=== PATIENT | female | born 1960 | race Two or more races ===

== ENCOUNTER 2017-12-31 21:54 | Emergency (ER) | payer SELFPAY ==
[~2017-12-31] VITALS: Ht 157.5 cm; Wt 73.0 kg
[~2017-12-31 21:54] MED LIST: LEVAQUIN500 MG ORAL
[2017-12-31] MEDS ORDERED: ASPIR 8181 MG ORAL (22:06)
[2017-12-31] MEDS ORDERED: IBUPROFEN600 MG ORAL (23:01)
[2017-12-31 23:17] VITALS: BP 157/87
[2017-12-31 23:18] VITALS: BP 157/87
--- NOTE | 2018-01-01 | Emergency Room Report ---
History of Present Illness General Chief Complaint: Upper Extremity Injury Source: Patient Present Illness HPI 57-year-old female no significant past medical history presenting with left shoulder pain since yesterday. Patient states that she fell onto an outstretched heart and since then she's had upper left shoulder pain worse with lifting her arm. No other complaints no head trauma no LOC Allergies: Coded Allergies: No Known Allergies (Unverified , 01/18/16) Patient History Past Medical History: see triage record Past Surgical History: none Pertinent Family History: none Reviewed Nursing Documentation: PMH: Agreed; PSxH: Agreed Nursing Documentation-PMH Past Medical History: No History, Except For Hx Cardiac Problems: Yes Hx Hypertension: Yes Review of Systems All Other Systems: negative except mentioned in HPI Physical Exam Vital Signs Date Time Temp Pulse Resp B/P (MAP) Pulse Ox O2 Delivery O2 Flow Rate FiO2 12/31/17 21:59 98.0 62 19 155/89 98 Room Air 98.1 Sp02 EP Interpretation: reviewed, normal General Appearance: alert, GCS 15, non-toxic, mild distress Head: normocephalic, atraumatic Eyes: bilateral eye normal inspection, bilateral eye PERRL, bilateral eye EOMI ENT: normal ENT inspection, normal pharynx, normal voice, moist mucus membranes Neck: normal inspection, full range of motion, supple Respiratory: normal inspection, lungs clear, normal breath sounds, no respiratory distress, no retraction, no wheezing, speaking full sentences, chest symmetrical Cardiovascular #1: normal inspection, regular rate, rhythm, no edema, normal capillary refill Cardiovascular #2: 2+ radial (R), 2+ radial (L) Gastrointestinal: normal inspection, non tender, soft, non-distended, no guarding Musculoskeletal: other - Left proximal humerus tenderness, limited range of motion cannot left shoulder above 90 secondary to pain, no gross bony deformities, elbow and wrist intact, no swelling Neurologic: normal inspection, alert, oriented x3, responsive, motor strength/ tone normal, sensory intact, normal gait, speech normal Psychiatric: normal inspection, judgement/insight normal, memory normal Skin: normal inspection, normal color, no rash, warm/dry, well hydrated, normal turgor Medical Decision Making Diagnostic Impression: Primary Impression: Greater tuberosity of humerus fracture ER Course 57-year-old female with left shoulder pain after fall yesterday DDX: Contusion vs. fracture Plan: Pain control with motrin XR ER course: Very slight greater tuberosity fracture noted, patient placed in sling Disposition: Patient is to be discharged home with a prescription of motrin. Patient instructed to keep splint on at all times, and to follow up with orthopedic surgery in 1 week. Patient educated to rest, ice, and elevate extremity and to avoid vigorous activity. Strict precautions discussed with patient on when to return to the emergency room including increased redness or swelling joints, increased pain/swelling of extremity, fever or chills, which could indicate severe illness. Please note that this Emergency Department Report was dictated using [employer] marketing analyst technology software, occasionally this can lead to erroneous entry secondary to interpretation by the dictation equipment. Xray ordered: Left shoulder Complete Indication: Pain EP Interpretation: Yes Interpretation: Greater tuberosity fracture Impression: Greater tuberosity fracture Electronically signed by Gloria Parks MD Xray: Left humerus 2 view Indication: Pain EP Interpretation: Yes Interpretation: Greater tuberosity fracture Impression: Greater tuberosity fracture Electronically signed by Gloria Parks MD Last Vital Signs Date Time Temp Pulse Resp B/P (MAP) Pulse Ox O2 Delivery O2 Flow Rate FiO2 12/31/17 23:18 97.8 56 19 157/87 98 Room Air 98.1 Disposition: HOME, SELF-CARE Condition: Improved Scripts Ibuprofen* (MOTRIN*) 600 Mg Tablet 600 MG ORAL Q8H PRN for For Pain, #30 TAB 0 Refills Prov: Gloria Parks M.D. 12/31/17 Referrals: NOT CHOSEN IPA/,REFERRING (PCP) Patient Instructions: Humerus Fracture Treated With Immobilization, Easy-to- Read Additional Instructions: PLEASE FOLLOW UP WITH AN ORTHOPEDIC SURGEON IN 1 WEEK Gloria Parks M.D. Jan 01, 2018 00:00
--- NOTE | 2018-01-01 11:31 | Diagnostic Imaging Report ---
Indication: Pain Findings: 2 views of the left humerus were obtained. No acute fractures, malalignment, erosions or periostitis are identified. Bone mineralization is within normal limits. Soft tissues are unremarkable. Impression: No acute injury.
--- NOTE | 2018-01-01 11:39 | Diagnostic Imaging Report ---
Indication: left shoulder pain Findings: 3 views of the left shoulder were obtained. Alignment of the left shoulder is normal. No acute fracture is identified. Soft tissues are unremarkable. Impression: No acute injury
== END 2017-12-31 23:20 | disposition home or self-care (01) ==
LOC: EMR 22:19
DX: S42.252A Displaced fracture of greater tuberosity of left humerus, initial encounter for closed fracture (principal); W19.XXXA Unspecified fall, initial encounter; Y92.9 Unspecified place or not applicable
CPT/HCPCS: 99284